=== PATIENT | female | born 1965 | race Caucasian/White ===

== ENCOUNTER → 2016-06-13 | Outpatient (CLI) | payer BC ==
[~2016-06-13] MED LIST: FAMOTIDINE20 MG PO; LASIX40 MG PO; PLAQUENIL 200200 MG PO; POTASSIUM CHLO10 ME2 PO; PREMARIN0.3 MG PO; SYNTHROID75 MCG PO
== END ==
LOC: CT 10:01
DX: R91.8 Other nonspecific abnormal finding of lung field (principal); J98.11 Atelectasis; G95.89 Other specified diseases of spinal cord; Z85.850 Personal history of malignant neoplasm of thyroid
CPT/HCPCS: 71260; Q9962

== ENCOUNTER 2020-05-08 19:05 | Emergency (ER) | payer BC ==
[~2020-05-08 19:05] MED LIST changes: +NAPROSYN500 MG PO; +NORFLEX 100 MG100 MG PO
[2020-05-08 21:44] LABS: HEMOGLOBIN 13.6 gm/dl (12.3-15.3); RED BLOOD COUNT 4.28 M/UL (4.00-5.10); WHITE BLOOD COUNT 6.4 K/UL (4.5-11.0)
[2020-05-08 22:24] LABS: BUN/CREATININE RATIO 19 (0-10)
[2020-05-09] MEDS ORDERED: ASPIRIN CHEWABL81 MG PO (00:29)
== END 2020-05-09 00:50 | disposition home or self-care (01) ==
LOC: ER1 19:05
PROVIDERS: Family Medicine
DX: R07.9 Chest pain, unspecified (principal); Z88.0 Allergy status to penicillin
CPT/HCPCS: 36415; 80053; 82550; 82553; 83874; 84484; 85025; 93005; 99285

== ENCOUNTER → 2020-05-11 | Outpatient (CLI) | payer BC ==
[~2020-05-11] MED LIST changes: +ASPIRIN CHEWABL81 MG PO
[2020-05-11 13:43] LABS: HEMOGLOBIN 14.5 gm/dl (12.3-15.3); RED BLOOD COUNT 4.53 M/UL (4.00-5.10); WHITE BLOOD COUNT 6.7 K/UL (4.5-11.0)
[2020-05-11 14:04] LABS: BUN/CREATININE RATIO 21 (0-10)
[2020-05-12 16:14] LABS: SARS COV-2 IGM AB Negative (Negative)
[2020-05-13 04:09] LABS: SARS COV-2 IGG AB Negative (Negative)
== END ==
LOC: LAB 12:48
PROVIDERS: Internal Medicine
DX: R05 Cough (principal); R07.9 Chest pain, unspecified; R06.09 Other forms of dyspnea; E03.9 Hypothyroidism, unspecified; Z01.84 Encounter for antibody response examination; Z79.899 Other long term (current) drug therapy
CPT/HCPCS: 36415; 71046; 80053; 82607; 82746; 84439; 84443; 85025; 86769

== ENCOUNTER → 2020-06-29 | Outpatient (CLI) | payer BC | LOC: LAB 16:58 | DX: R76.8 Other specified abnormal immunological findings in serum (principal); R51.9 Headache, unspecified; M35.9 Systemic involvement of connective tissue, unspecified; L98.9 Disorder of the skin and subcutaneous tissue, unspecified | CPT/HCPCS: 81001 ==

== ENCOUNTER → 2021-01-04 | Outpatient (CLI) | payer BC | LOC: RAD 09:49 | DX: M54.5 Low back pain (principal); M51.34 Other intervertebral disc degeneration, thoracic region | CPT/HCPCS: 72072; 72110; 73030 ==

== ENCOUNTER → 2021-09-07 | Outpatient (CLI) | payer BC | LOC: US 09-06 09:30 | DX: M54.2 Cervicalgia (principal); C73 Malignant neoplasm of thyroid gland; R91.8 Other nonspecific abnormal finding of lung field; K76.9 Liver disease, unspecified | CPT/HCPCS: 71270; 76536; Q9967 ==

== ENCOUNTER → 2021-09-25 | Outpatient (CLI) | payer BC | LOC: MRI 14:52 | DX: K76.89 Other specified diseases of liver (principal) | CPT/HCPCS: 74183; A9577 ==